=== PATIENT | female | born 1945 | race Caucasian/White ===

== ENCOUNTER 2019-01-16 11:01 | Outpatient (CLI) | payer MEDICARE, OTHER ==
--- NOTE | 2019-01-16 16:33 | PET ---
PET CT FROM SKULL BASE TO MID THIGHS: INDICATION: History of malignant neoplasm to the right breast without history of chemotherapy, but with history o f radiation therapy. History of surgery or biopsy on 07/16/18. COMPARISON: None. RADIOPHARMACEUTICAL: 11.9 mCi F18-FDG IV. TECHNIQUE: PET CT images were obtained from the skull base through the mid thighs following introduction of the radiopharmaceutical IV. CT images were obtained for attenuation correction purposes only. FINDINGS: The biodistribution for the examination appears acceptable. There is some mild muscular uptake seen s urrounding the shoulders. Head/Neck: No hypermetabolic lymphadenopathy or lesion is evident. There is some mild hypermetabolic activity se en over the vocal cords, likely related to phonation. 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 Thorax: There are densities involving the right breast parenchyma with overlying skin thickening, likely rela buck to prior therapy. There is a 1.0 cm nonhypermetabolic right axillary lymph node with a peak activ ity of 1.74 with a mean activity of 1.59. There is moderate cardiomegaly. There is mitral valve repla cement. There is a multilead pacemaker overlying the left chest wall. Abdomen/Pelvis: There is no hypermetabolic lymphadenopathy or mass identified. No hypermetabolic ascites is present. There is a nonobstructing calculus involving the left kidney measuring 5.5 mm. There is scattered col onic diverticulosis. Skin/Osseous Structures: No hypermetabolic skin or osseous lesion is identified. IMPRESSION: 1. No definite scintigraphic evidence to suggest presence of metastatic disease. 2. Suspected radiation therapy changes involving the right breast. 3. Mildly prominent right axillary lymph node measuring 1.0 cm without associated hypermetabolic upt bryanna. Continued follow-up is recommended. 4. 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 5. Moderate cardiomegaly. 6. Left nephrolithiasis. 7. Scattered colonic diverticulosis. POS: [facility]
== END 2019-01-16 11:02 | disposition home or self-care (01) ==
LOC: PET 11:01
PROVIDERS: ATTEND Plastic Surgery Surgery of the Hand
DX: C50.411 Malignant neoplasm of upper-outer quadrant of right female breast (principal); Z17.0 Estrogen receptor positive status [ER+]; I51.7 Cardiomegaly; N20.0 Calculus of kidney; K57.30 Diverticulosis of large intestine without perforation or abscess without bleeding
CPT/HCPCS: 78815; A9552

== ENCOUNTER 2020-12-20 13:24 | Outpatient (CLI) | payer MEDICARE, OTHER ==
[2020-12-20 15:11] LABS: Anion Gap 11 mmol/L (10-20); BUN (Urea Nitrogen) 20 mg/dL (9.8-20.1); Calc. Creatinine Clearance 0 mL/min (70-130); Calcium 9.8 mg/dL (7.8-10.44); Carbon Dioxide 29 mmol/L (23-31); Chloride 103 mmol/L (98-107); Glucose 143 mg/dL (83-110); Potassium 4.4 mmol/L (3.5-5.1); Sodium 139 mmol/L (136-145)
[2020-12-20 15:16] LABS: Hemoglobin 13.1 g/dL (12.0-15.5); Mean Corpuscular HGB CONC 32.3 g/dL (32.0-36.0); Mean Corpuscular Hemoglobin 31.4 pg (27.0-33.0); Mean Corpuscular Volume 97.1 fl (81.6-98.3); Mean Platelet Volume 12.4 fl (7.4-10.4); Platelet Count 153 10x3/uL (150-450); RBC Distribution Width 13.1 % (11.5-14.5); Red Blood Cell (RBC) Count 4.17 10x6/uL (3.90-5.03); White Blood Cell (WBC) Count 5.8 10x3/uL (3.5-10.5)
[2020-12-20 15:35] LABS: INR-International Normal Ratio 2.9; Prothrombin Time 28.4 sec (9.5-12.1)
[2020-12-21 04:20] LABS: SARS-CoV-2 PCR by NAA Not Detected (NotDetected)
== END 2020-12-20 13:25 | disposition home or self-care (01) ==
LOC: LABBT 13:24
PROVIDERS: ATTEND Internal Medicine Cardiovascular Disease
DX: Z01.812 Encounter for preprocedural laboratory examination (principal); Z20.822 Contact with and (suspected) exposure to COVID-19; T82.190A Other mechanical complication of cardiac electrode, initial encounter
CPT/HCPCS: 80048; 85027; 85610; U0003; U0005; 87635

== ENCOUNTER 2020-12-21 08:27 | Day surgery (SDC) | payer MEDICARE, OTHER ==
[2020-12-20 13:34] VITALS: BMI 25.2
[2020-12-21] MEDS ORDERED: PROPOFOL 20 ML ONE (10:54)
== END 2020-12-21 13:07 | disposition home or self-care (01) ==
LOC: CCL 08:27
PROVIDERS: ATTEND Internal Medicine Cardiovascular Disease
PROC: B24BZZ4 Ultrasonography of Heart with Aorta, Transesophageal (ICD-10-PCS; principal; 2020-12-21)
DX: T82.190A Other mechanical complication of cardiac electrode, initial encounter (principal); I44.2 Atrioventricular block, complete; I50.32 Chronic diastolic (congestive) heart failure; I48.21 Permanent atrial fibrillation; I25.10 Atherosclerotic heart disease of native coronary artery without angina pectoris; E78.5 Hyperlipidemia, unspecified; E03.9 Hypothyroidism, unspecified; Z87.891 Personal history of nicotine dependence; Z79.01 Long term (current) use of anticoagulants; Z79.811 Long term (current) use of aromatase inhibitors; Z79.82 Long term (current) use of aspirin; Z79.899 Other long term (current) drug therapy; Z88.0 Allergy status to penicillin; Z88.8 Allergy status to other drugs, medicaments and biological substances; Z95.2 Presence of prosthetic heart valve; Z95.810 Presence of automatic (implantable) cardiac defibrillator
CPT/HCPCS: 93312; J2704

== ENCOUNTER 2024-05-13 18:24 | Inpatient (IN) | payer MEDICARE, OTHER ==
[2024-05-13] MEDS ORDERED: Pantoprazole 40 MG VIAL ONE (18:48)
[2024-05-13 19:08] LABS: #Basophils Less than 0.03 10x3/uL (0.0-0.2); #Eosinphils Less than 0.03 10x3/uL (0.0-0.7); %Basophils 0.4 % (0.0-1.0); %Eosinophils 0.4 % (0.0-10.0); %Lymphocytes 25.7 % (21.0-51.0); %Monocytes 10.8 % (0.0-10.0); %Neutrophils 61.7 % (42.0-75.0); Hematocrit 21.7 % (36.0-47.0); Hemoglobin 6.8 g/dL (12.0-16.0); Mean Corpuscular HGB CONC 31.3 g/dL (32.0-36.0); Mean Corpuscular Hemoglobin 30.4 pg (27.0-31.0); Mean Corpuscular Volume 96.9 fL (78.0-98.0); Mean Platelet Volume 11.3 fL (7.4-10.4); Platelet Count 261 10x3/uL (130-400); RBC Distribution Width 20.8 % (11.5-14.5); Red Blood Cell (RBC) Count 2.24 mill/uL (4.20-5.40)
[2024-05-13] MEDS ORDERED: Pantoprazole 80 MG, Admixture Fee 1 EACH in Sodium Chloride 0.9% 100 ML IVPB SCH (19:15)
[2024-05-13 19:17] LABS: PTT 41.7 sec (22.9-36.1)
[2024-05-13 19:18] LABS: ALT (SGPT) 7 U/L (8-55); AST (SGOT) 17 U/L (5-34); Albumin 3.4 g/dL (3.4-4.8); Alkaline Phosphatase 19 U/L (40-110); Anion Gap 13 mmol/L (10-20); BUN (Urea Nitrogen) 30 mg/dL (9.8-20.1); Bilirubin, Total 0.5 mg/dL (0.2-1.2); Calc. Creatinine Clearance 0 mL/min (70-130); Calcium 8.6 mg/dL (7.8-10.44); Carbon Dioxide 25 mmol/L (23-31); Chloride 103 mmol/L (98-107); Estimated GFR 46; Globulin 2.6 g/dL (2.4-3.5); Glucose 132 mg/dL (83-110); Potassium 4.3 mmol/L (3.5-5.1); Sodium 137 mmol/L (136-145)
[2024-05-13] MEDS ORDERED: Ondansetron ODT 4 MG TAB PO PRN (20:57)
[2024-05-13] MEDS ORDERED: Ondansetron PF 4 MG/2 ML Vial IVP PRN (20:57)
[2024-05-13] MEDS ORDERED: Acetaminophen 650 MG Suppository PR PRN (20:57)
[2024-05-13] MEDS ORDERED: methylPREDNISolone Sod Succ 40 MG VIAL ONE (23:06)
[2024-05-13] MEDS ORDERED: diphenhydrAMINE 50 MG/ML VIAL ONE (23:06)
[2024-05-14] MEDS ORDERED: Acetaminophen 650 MG/20.3 ML UDCUP ONE (01:03)
[2024-05-14] MEDS: Acetaminophen 325 MG TAB PO PRN (01:09)
[2024-05-14 01:21] LABS: Hematocrit 21.1 % (36.0-47.0); Hemoglobin 6.6 g/dL (12.0-16.0)
[2024-05-14] MEDS ORDERED: Pantoprazole 80 MG, Admixture Fee 1 EACH in Sodium Chloride 0.9% 100 ML IVPB SCH (02:30)
[2024-05-14 07:11] LABS: #Basophils Less than 0.03 10x3/uL (0.0-0.2); #Eosinphils Less than 0.03 10x3/uL (0.0-0.7); %Basophils 0.2 % (0.0-1.0); %Lymphocytes 13.5 % (21.0-51.0); %Monocytes 2.7 % (0.0-10.0); %Neutrophils 81.8 % (42.0-75.0); Hematocrit 24.5 % (36.0-47.0); Mean Corpuscular HGB CONC 32.7 g/dL (32.0-36.0); Mean Corpuscular Hemoglobin 31.5 pg (27.0-31.0); Mean Corpuscular Volume 96.5 fL (78.0-98.0); Mean Platelet Volume 10.8 fL (7.4-10.4); Platelet Count 244 10x3/uL (130-400); RBC Distribution Width 19.6 % (11.5-14.5); Red Blood Cell (RBC) Count 2.54 mill/uL (4.20-5.40)
[2024-05-14 07:26] LABS: INR-International Normal Ratio 5.7; Prothrombin Time 51.9 sec (12.0-14.7)
[2024-05-14 07:27] LABS: Anion Gap 12 mmol/L (10-20); BUN (Urea Nitrogen) 30 mg/dL (9.8-20.1); Calc. Creatinine Clearance 0 mL/min (70-130); Calcium 8.3 mg/dL (7.8-10.44); Carbon Dioxide 19 mmol/L (23-31); Chloride 110 mmol/L (98-107); Estimated GFR 59; Glucose 157 mg/dL (83-110); Potassium 4.4 mmol/L (3.5-5.1); Sodium 137 mmol/L (136-145)
[2024-05-14] MEDS ORDERED: Warfarin Sodium 2.5 MG TAB PO SCH (14:45)
[2024-05-14] MEDS ORDERED: Warfarin Sodium 1.5 MG TAB PO SCH (15:30)
[2024-05-14 16:34] LABS: INR-International Normal Ratio 6.4
[2024-05-14] MEDS ORDERED: Warfarin Sodium 1 MG TAB PO SCH (17:00)
[2024-05-14] MEDS: Phytonadione 10 MG in Sodium Chloride 0.9% 50 ML IVPB SCH (18:57)
[2024-05-14 22:39] VITALS: BMI 22.4
[2024-05-15 03:43] LABS: #Basophils Less than 0.03 10x3/uL (0.0-0.2); #Eosinphils Less than 0.03 10x3/uL (0.0-0.7); %Basophils 0.1 % (0.0-1.0); %Lymphocytes 9.9 % (21.0-51.0); %Monocytes 8.4 % (0.0-10.0); %Neutrophils 80.9 % (42.0-75.0); Hematocrit 23.5 % (36.0-47.0); Hemoglobin 7.5 g/dL (12.0-16.0); Mean Corpuscular HGB CONC 31.9 g/dL (32.0-36.0); Mean Corpuscular Hemoglobin 31.4 pg (27.0-31.0); Mean Corpuscular Volume 98.3 fL (78.0-98.0); Mean Platelet Volume 10.6 fL (7.4-10.4); Platelet Count 283 10x3/uL (130-400); RBC Distribution Width 21.5 % (11.5-14.5); Red Blood Cell (RBC) Count 2.39 mill/uL (4.20-5.40)
[2024-05-15 04:01] LABS: INR-International Normal Ratio 1.5; Prothrombin Time 17.9 sec (12.0-14.7)
[2024-05-15 04:27] LABS: Anion Gap 13 mmol/L (10-20); BUN (Urea Nitrogen) 33 mg/dL (9.8-20.1); Calc. Creatinine Clearance 40 mL/min (70-130); Calcium 8.7 mg/dL (7.8-10.44); Carbon Dioxide 22 mmol/L (23-31); Chloride 108 mmol/L (98-107); Estimated GFR 56; Glucose 146 mg/dL (83-110); Potassium 4.7 mmol/L (3.5-5.1); Sodium 138 mmol/L (136-145)
[2024-05-15] MEDS: Enoxaparin 30 MG (0.3 mL) SYRINGE SC SCH (11:32)
[2024-05-15] MEDS: Lorazepam 2 MG/ML VIAL SLOW IVP PRN (17:08)
[2024-05-15] MEDS: Warfarin Sodium 1.5 MG TAB PO SCH ×2 (19:07→19:08)
[2024-05-15] MEDS: QUEtiapine 25 MG TAB PO SCH (20:03)
[2024-05-16 06:35] LABS: #Basophils Less than 0.03 10x3/uL (0.0-0.2); %Basophils 0.1 % (0.0-1.0); %Eosinophils 0.8 % (0.0-10.0); %Lymphocytes 12.5 % (21.0-51.0); %Monocytes 7.8 % (0.0-10.0); %Neutrophils 78.2 % (42.0-75.0); Hematocrit 26.4 % (36.0-47.0); Hemoglobin 8.3 g/dL (12.0-16.0); Mean Corpuscular HGB CONC 31.4 g/dL (32.0-36.0); Mean Corpuscular Hemoglobin 30.4 pg (27.0-31.0); Mean Corpuscular Volume 96.7 fL (78.0-98.0); Mean Platelet Volume 10.5 fL (7.4-10.4); Platelet Count 297 10x3/uL (130-400); RBC Distribution Width 21.2 % (11.5-14.5); Red Blood Cell (RBC) Count 2.73 mill/uL (4.20-5.40)
[2024-05-16 06:51] LABS: INR-International Normal Ratio 1.1; Prothrombin Time 13.9 sec (12.0-14.7)
[2024-05-16 06:52] LABS: Anion Gap 10 mmol/L (10-20); BUN (Urea Nitrogen) 26 mg/dL (9.8-20.1); Calc. Creatinine Clearance 49 mL/min (70-130); Calcium 8.7 mg/dL (7.8-10.44); Carbon Dioxide 27 mmol/L (23-31); Chloride 108 mmol/L (98-107); Estimated GFR 72; Glucose 81 mg/dL (83-110); Potassium 4.2 mmol/L (3.5-5.1); Sodium 141 mmol/L (136-145)
[2024-05-16] MEDS: HYDROcodone/Acetaminophen 5/325 mg Tablet PO PRN (14:11)
[2024-05-16] MEDS: Morphine 4 MG/ML VIAL ONE (15:54)
[2024-05-16] MEDS: Warfarin Sodium 3 MG TAB PO SCH (16:29)
[2024-05-16] MEDS: Enoxaparin 30 MG (0.3 mL) SYRINGE SC SCH ×2 (17:55→22:03)
[2024-05-16] MEDS: Morphine 4 MG/ML VIAL SLOW IVP PRN (18:54)
[2024-05-16] MEDS: traZODone HCl 50 MG TAB PO PRN (22:02)
[2024-05-17] MEDS: Morphine 4 MG/ML VIAL SLOW IVP SCH (00:46)
[2024-05-17 04:13] LABS: #Basophils Less than 0.03 10x3/uL (0.0-0.2); %Basophils 0.2 % (0.0-1.0); %Eosinophils 1.8 % (0.0-10.0); %Lymphocytes 12.1 % (21.0-51.0); %Monocytes 11.7 % (0.0-10.0); %Neutrophils 73.7 % (42.0-75.0); Hematocrit 25.7 % (36.0-47.0); Hemoglobin 7.9 g/dL (12.0-16.0); Mean Corpuscular HGB CONC 30.7 g/dL (32.0-36.0); Mean Corpuscular Hemoglobin 30.9 pg (27.0-31.0); Mean Corpuscular Volume 100.4 fL (78.0-98.0); Mean Platelet Volume 10.2 fL (7.4-10.4); Platelet Count 313 10x3/uL (130-400); RBC Distribution Width 20.1 % (11.5-14.5); Red Blood Cell (RBC) Count 2.56 mill/uL (4.20-5.40)
[2024-05-17 04:25] LABS: INR-International Normal Ratio 1.2; Prothrombin Time 15.2 sec (12.0-14.7)
[2024-05-17 04:39] LABS: Anion Gap 14 mmol/L (10-20); BUN (Urea Nitrogen) 19 mg/dL (9.8-20.1); Calc. Creatinine Clearance 50 mL/min (70-130); Calcium 8.7 mg/dL (7.8-10.44); Carbon Dioxide 23 mmol/L (23-31); Chloride 104 mmol/L (98-107); Estimated GFR 73; Glucose 105 mg/dL (83-110); Sodium 137 mmol/L (136-145)
[2024-05-17] MEDS: Levothyroxine Sodium 25 MCG TAB PO SCH (05:45)
[2024-05-17] MEDS: Enoxaparin 60 MG (0.6 mL) SYRINGE SC SCH (08:23)
[2024-05-17] MEDS ORDERED: Enoxaparin 30 MG (0.3 mL) SYRINGE SC SCH (09:00)
[2024-05-17] MEDS: Warfarin Sodium 5 MG TAB PO SCH (17:11)
[2024-05-18 05:10] LABS: #Basophils Less than 0.03 10x3/uL (0.0-0.2); %Basophils 0.3 % (0.0-1.0); %Eosinophils 3.6 % (0.0-10.0); %Lymphocytes 11.1 % (21.0-51.0); %Neutrophils 72.6 % (42.0-75.0); Hematocrit 24.2 % (36.0-47.0); Hemoglobin 7.7 g/dL (12.0-16.0); Mean Corpuscular HGB CONC 31.8 g/dL (32.0-36.0); Mean Corpuscular Hemoglobin 30.2 pg (27.0-31.0); Mean Corpuscular Volume 94.9 fL (78.0-98.0); Mean Platelet Volume 10.6 fL (7.4-10.4); Platelet Count 305 10x3/uL (130-400); RBC Distribution Width 18.7 % (11.5-14.5); Red Blood Cell (RBC) Count 2.55 mill/uL (4.20-5.40)
[2024-05-18 05:27] LABS: INR-International Normal Ratio 1.6; Prothrombin Time 18.8 sec (12.0-14.7)
[2024-05-18 05:30] LABS: Anion Gap 12 mmol/L (10-20); BUN (Urea Nitrogen) 17 mg/dL (9.8-20.1); Calc. Creatinine Clearance 45 mL/min (70-130); Carbon Dioxide 25 mmol/L (23-31); Chloride 102 mmol/L (98-107); Potassium 3.6 mmol/L (3.5-5.1); Sodium 135 mmol/L (136-145)
[2024-05-18 05:31] LABS: Calcium 8.5 mg/dL (7.8-10.44); Estimated GFR 64; Glucose 112 mg/dL (83-110)
[2024-05-18] MEDS: Polyethylene Glycol 3350 17 GM Packet PO SCH (15:03)
[2024-05-18] MEDS: Warfarin Sodium 3 MG TAB PO SCH (17:13)
[2024-05-18] MEDS: Senokot S 8.6-50 MG TAB PO SCH (20:05)
[2024-05-19 05:25] LABS: #Basophils Less than 0.03 10x3/uL (0.0-0.2); %Basophils 0.3 % (0.0-1.0); %Eosinophils 3.1 % (0.0-10.0); %Lymphocytes 11.5 % (21.0-51.0); %Monocytes 13.3 % (0.0-10.0); %Neutrophils 71.2 % (42.0-75.0); Hematocrit 24.7 % (36.0-47.0); Hemoglobin 7.7 g/dL (12.0-16.0); Mean Corpuscular HGB CONC 31.2 g/dL (32.0-36.0); Mean Corpuscular Hemoglobin 30.3 pg (27.0-31.0); Mean Corpuscular Volume 97.2 fL (78.0-98.0); Mean Platelet Volume 10.8 fL (7.4-10.4); Platelet Count 341 10x3/uL (130-400); Red Blood Cell (RBC) Count 2.54 mill/uL (4.20-5.40)
[2024-05-19 05:40] LABS: INR-International Normal Ratio 1.7; Prothrombin Time 19.7 sec (12.0-14.7)
[2024-05-19 05:46] LABS: Anion Gap 13 mmol/L (10-20); BUN (Urea Nitrogen) 14 mg/dL (9.8-20.1); Calc. Creatinine Clearance 48 mL/min (70-130); Carbon Dioxide 24 mmol/L (23-31); Chloride 104 mmol/L (98-107); Potassium 4.2 mmol/L (3.5-5.1); Sodium 137 mmol/L (136-145)
[2024-05-19 05:47] LABS: Calcium 8.6 mg/dL (7.8-10.44); Estimated GFR 70; Glucose 91 mg/dL (83-110)
[2024-05-19] MEDS: Ferrous Sulfate 325 MG TAB PO SCH (10:02)
[2024-05-19] MEDS: Polyethylene Glycol 3350 17 GM Packet PO SCH (10:02)
[2024-05-19] MEDS ORDERED: Warfarin Sodium 1.5 MG TAB PO SCH (17:00)
[2024-05-19] MEDS ORDERED: Warfarin Sodium 3 MG TAB PO SCH (17:00)
[2024-05-19] MEDS: Warfarin Sodium 5 MG TAB PO SCH (17:28)
[2024-05-19] MEDS: Sodium Chloride 0.9% 500 ML IV SCH (22:39)
[2024-05-19] MEDS: Ibuprofen 200 MG TAB PO PRN (22:41)
[2024-05-20 05:16] LABS: Hematocrit 25.5 % (36.0-47.0); Hemoglobin 7.7 g/dL (12.0-16.0)
[2024-05-20 05:32] LABS: Prothrombin Time 22.9 sec (12.0-14.7)
[2024-05-20 11:33] VITALS: BMI 22.4
[2024-05-20] MEDS: Warfarin Sodium 1.5 MG TAB PO SCH (16:40)
[2024-05-21 05:14] LABS: Hematocrit 23.1 % (36.0-47.0); Hemoglobin 7.1 g/dL (12.0-16.0)
[2024-05-21 05:27] LABS: INR-International Normal Ratio 2.1; Prothrombin Time 23.2 sec (12.0-14.7)
[2024-05-22 05:28] LABS: #Basophils 0.05 10x3/uL (0.0-0.2); %Basophils 0.7 % (0.0-1.0); %Eosinophils 2.4 % (0.0-10.0); %Lymphocytes 12.8 % (21.0-51.0); %Monocytes 17.1 % (0.0-10.0); %Neutrophils 66.4 % (42.0-75.0); Hematocrit 23.4 % (36.0-47.0); Hemoglobin 7.1 g/dL (12.0-16.0); Mean Corpuscular HGB CONC 30.3 g/dL (32.0-36.0); Mean Corpuscular Hemoglobin 28.1 pg (27.0-31.0); Mean Corpuscular Volume 92.5 fL (78.0-98.0); Mean Platelet Volume 9.9 fL (7.4-10.4); Platelet Count 400 10x3/uL (130-400); RBC Distribution Width 19.7 % (11.5-14.5); Red Blood Cell (RBC) Count 2.53 mill/uL (4.20-5.40)
[2024-05-22 05:42] LABS: Prothrombin Time 22.4 sec (12.0-14.7)
[2024-05-22 08:58] VITALS: TEMP 98.2
[2024-05-22 16:53] VITALS: BP 109/58
[2024-05-22] MEDS ORDERED: Warfarin Sodium 2 MG TAB PO SCH (17:00)
== END 2024-05-22 17:03 | disposition home or self-care (01) | DRG 811 ==
LOC: ERS 18:24 → ERHOLD 19:54 → IMCU/EMU 05-14 20:05 → MSONC 05-17 14:28
PROVIDERS: ADMIT Student in an Organized Health Care Education/Training Program; ATTEND Internal Medicine
PROC: 30233N1 Transfusion of Nonautologous Red Blood Cells into Peripheral Vein, Percutaneous Approach (ICD-10-PCS; principal; 2024-05-13)
DX: D64.9 Anemia, unspecified (principal); K55.21 Angiodysplasia of colon with hemorrhage; S52.511A Displaced fracture of right radial styloid process, initial encounter for closed fracture; I25.10 Atherosclerotic heart disease of native coronary artery without angina pectoris; G93.89 Other specified disorders of brain; I48.91 Unspecified atrial fibrillation; I10 Essential (primary) hypertension; K59.00 Constipation, unspecified; W19.XXXA Unspecified fall, initial encounter; E03.9 Hypothyroidism, unspecified; Z95.1 Presence of aortocoronary bypass graft; Z88.0 Allergy status to penicillin; Z79.82 Long term (current) use of aspirin; Z79.01 Long term (current) use of anticoagulants; Z79.890 Hormone replacement therapy; Z90.710 Acquired absence of both cervix and uterus; Z98.890 Other specified postprocedural states; Z95.2 Presence of prosthetic heart valve; Z85.3 Personal history of malignant neoplasm of breast; Z90.49 Acquired absence of other specified parts of digestive tract; Z87.891 Personal history of nicotine dependence
CPT/HCPCS: 36415; 36416; 36430; 70450; 80048; 80053; 82728; 83540; 83550; 85014; 85018; 85025; 85610; 85730; 86850; 86870; 86900; 86901; 86905; 86922; 93005; 96374; J1200; J1642; J1650; J2060; J2272; J2470; J2919; J3430; J7030; P9016